=== PATIENT | male | born 1980 ===

== ENCOUNTER 2021-04-15 11:06 | Emergency (ER) | payer OTHER, SELFPAY ==
[2021-04-15 12:26] VITALS: BP 117/69; PULSE 80; RESP 18; TEMP 36.7; O2SAT 99; BMI 37.1
--- NOTE | 2021-04-15 13:47 | ED.SKABFB ---
HPI - Skin/Abscess/Foreign Bdy General Chief complaint: Skin/Abscess/Foreign Body Stated complaint: rash Time Seen by Provider: 04/15/21 13:36 Source: patient Mode of arrival: ambulatory Limitations: no limitations History of Present Illness HPI narrative: 41-year-old male with rash the right side his face started with an infection and then has accumulated he has been putting bacitracin and cortisone with worsening redness and itchiness. He denies fevers cough shortness of breath nausea vomiting or diarrhea. MD complaint: rash Related Data Previous Rx's Medication Instructions Recorded doxycycline hyclate 100 mg capsule 100 mg PO DAILY #7 cap 04/15/21 mupirocin 2 % topical ointment 1 appl TOPICAL TID #22 g 04/15/21 Allergies Allergy/AdvReac Type Severity Reaction Status Date / Time No Known Allergies Allergy Unverified 03/15/20 16:53 Review of Systems Review of Systems: Review of systems: General: Patient denies any fever chills recent illness or falls Musculoskeletal: Denies back pain or body aches or other injuries HEENT: denies headache, runny nose, ear pain Respiratory: denies shortness of breath, cough Cardiovascular: no chest pain or palpitations : denies dysuria, frequency Abdomen: no nausea vomiting denies abdominal pain Extremities: no swelling, no pain Skin: Well-demarcated rash to the right side of his face with pimples no diaphoresis Yes all other systems are reviewed and are negative PMFSH Past Medical History Medical History (Updated 04/15/21 @ 13:52 by Neville Carrasco DO) No known health problems Social History Social History Advance Directives: No Advance Directives Information Provided: No Physical Exam Vital Signs: Vital Signs: Last Vital Signs Temp 98.1 F 04/15/21 12:26 Pulse 80 04/15/21 12:26 Resp 18 04/15/21 12:26 BP 117/69 04/15/21 12:26 Pulse Ox 99 04/15/21 12:26 Body Mass Index 37.1 General: Well-appearing well-nourished in no signs of distress HEENT: Normocephalic atraumatic Neck: No signs of JVD, no masses no tenderness or lymphadenopathy Cardiovascular: Regular rate and rhythm Respiratory: Clear to auscultation bilaterally Abdomen: Soft nontender no masses rectal exam performed guiac negative chemistry quality control technician confirmed. Extremities: Normal pedal pulses no signs of edema Skin: Rash the right side his face with erysipelas verses a staph infection isolated just to the right side his face Dry warm no rashes Back: No tenderness full ROM MDM - Skin/Abscess/Foreign Bdy MDM Narrative Medical decision making narrative: Likely paraseptal versus staph infection all start the patient on doxycycline and reports and cream. Discharge Plan Discharge Clinical Impression: Erysipelas Patient Disposition: Home, Self-Care Instructions: MRSA (Methicillin-Resistant Staphylococcus Aureus) (ED), Cellulitis (ED) Additional Instructions: Please use the cream and antiobiotic. If you have any other concerns please return to the ED. Prescriptions: New doxycycline hyclate 100 mg capsule 100 mg PO DAILY Qty: 7 RF: 0 mupirocin 2 % ointment 1 appl topical TID Qty: 22 RF: 0
--- NOTE | 2021-04-15 14:01 | PC.NURSE ---
PT EVALUATED BY DR CUNNINGHAM UPON ARRIVAL TO ED RP ROOM PT AWAKE, ALERT AND ORIENTED X 3. SKIN WARM AND DRY. RESP UNLABORED. DENIES N/V. NO C/O PAIN. REPORTS RASH TO RIGHT SIDE OF FACE THAT IS VERY ITCHY. PLAN IS FOR ABX AND DC HOME. PT AWARE AND AGREEABLE TO PLAN
== END 2021-04-15 14:05 | disposition home or self-care (01) ==
PROVIDERS: Emergency Provider Student in an Organized Health Care Education/Training Program; PCP Family Medicine
DX: A46 Erysipelas (principal); R21 Rash and other nonspecific skin eruption; Z79.899 Other long term (current) drug therapy
CPT/HCPCS: 99282; 99283

== ENCOUNTER 2022-03-12 09:53 | Emergency (ER) | payer OTHER, SELFPAY | END 2022-03-12 11:39 | disposition left against medical advice (07) | PROVIDERS: Emergency Provider Emergency Medicine; PCP Family Medicine | DX: M54.50 Low back pain, unspecified (principal) ==

== ENCOUNTER 2023-02-09 11:43 | Outpatient (REF) | payer OTHER, SELFPAY ==
[2023-02-09 14:07] LABS: Alanine Aminotransferase 38 U/L (0-40); Albumin Level 4.3 g/dL (3.5-5.0); Alkaline Phosphatase 84 U/L (39-117); Anion Gap 11 (12-20); Aspartate Amino Transferase 28 U/L (5-37); Bilirubin Direct 0.1 mg/dL (0.0-0.5); Bilirubin Total 0.3 mg/dL (0.0-1.0); Blood Urea Nitrogen 12 mg/dL (9-16); Calcium 9.7 mg/dL (8.4-10.2); Carbon Dioxide 30 mmol/L (22-29); Chloride 107 mmol/L (96-108); Cholesterol 234 mg/dL; Estimated Glomerular Filt Rate > 60; Glucose Random 99 mg/dL (60-115); HDL Cholesterol 49 mg/dL; LDL Cholesterol Calculated 162 mg/dl; Sodium 144 mmol/L (135-145); Total Protein 7.6 g/dL (6.5-8.0); Triglycerides 119 mg/dL
[2023-02-10 02:47] LABS: Microalbum/Creatinine Ratio Ur 6.7 ug/mg cr
[2023-02-10 04:38] LABS: HIV AB/AG Nonreactive (Nonreactive); HIV Num 1 0.07 S/CO (0.00-0.99)
[2023-02-10 04:44] LABS: ~HepC Num1 0.11 S/CO (0.00-0.79); ~Hepatitis C Antibody Nonreactive (Nonreactive)
== END 2023-02-09 11:44 | disposition home or self-care (01) ==
LOC: HO.HHCL 11:43
PROVIDERS: Visit Provider Family Medicine
DX: Z11.4 Encounter for screening for human immunodeficiency virus [HIV] (principal); Z11.59 Encounter for screening for other viral diseases; E78.5 Hyperlipidemia, unspecified; E11.69 Type 2 diabetes mellitus with other specified complication
CPT/HCPCS: 36415; 80048; 80061; 80076; 82043; 86803; 87389

== ENCOUNTER 2023-03-23 12:50 | Outpatient (REF) | payer OTHER, SELFPAY ==
[2023-03-23 17:13] LABS: Microalbumin Urine < 5.0 mg/L
== END 2023-03-23 12:51 | disposition home or self-care (01) ==
LOC: HO.HHCL 12:50
PROVIDERS: Visit Provider Family Medicine
DX: E11.69 Type 2 diabetes mellitus with other specified complication (principal)
CPT/HCPCS: 82043; 82570

== ENCOUNTER 2024-03-21 12:12 | Outpatient (REF) | payer OTHER, SELFPAY ==
--- NOTE | ~2024-03-21 | XR_ITS ---
EXAMINATION: XR CERVICAL SPINE CLINICAL INFORMATION: Neck pain. Patient reports neck pain during wrestling. COMPARISON: None available. TECHNIQUE: 6 views of the cervical spine, inclusive of flexion and extension views, were obtained. FINDINGS: Question slight anterior listhesis of C3 on C4. Additionally there is suboptimal visualization of the C3-C4 facet joint on the lateral view and on the right anterior oblique view Additionally the cervicothoracic junction partially obscured by overlying tissues. The remaining vertebral bodies and disc spaces and facets are unremarkable. XR/XR cervical spine 4V IMPRESSION: Exam is partially limited as the cervicothoracic junction is partially obscured on the lateral projection. Additionally there appears to be subtle malalignment at the C3-C4 level is suboptimal visualization of the facet joints. Possibility of fracture in or subluxation at this level is a concern. Recommend follow-up examination with CT to better visualize this portion of the cervical spine as well as well as to fully evaluate the cervicothoracic junction This critical result was discussed with Dr Freeman at approximately 3:25 PM on March 21, 2024 and it was ascertained that the content and urgency of the report was understood at the time of direct communication. Electronically signed by: Rodney Sweet MD 03/21/2024 03:30 PM EDT
[2024-03-21 13:39] LABS: Hematocrit 49.3 % (42.0-52.0); Hemoglobin 15.6 g/dl (14.0-18.0); Mean Corpuscular HGB Conc 31.6 g/dl (31.0-36.0); Mean Corpuscular Volume 85.4 fL (80.0-98.0); Mean Platelet Volume 9.8 fL (9.4-12.4); Platelet Count 242 X10*3/uL (160-400); Red Blood Count 5.77 X10*6/uL (4.60-5.80); Red Cell Distribution Width 14.5 % (11.0-16.0)
[2024-03-21 14:17] LABS: Alanine Aminotransferase 27 U/L (0-40); Albumin Level 4.2 g/dL (3.5-5.0); Alkaline Phosphatase 82 U/L (39-117); Anion Gap 13 (12-20); Aspartate Amino Transferase 25 U/L (5-37); Bilirubin Direct < 0.2 mg/dL (0.0-0.5); Bilirubin Total 0.2 mg/dL (0.0-1.0); Blood Urea Nitrogen 12 mg/dL (9-16); Calcium 9.2 mg/dL (8.4-10.2); Carbon Dioxide 27 mmol/L (22-29); Chloride 108 mmol/L (96-108); Cholesterol 170 mg/dL (<200); Estimated Glomerular Filt Rate > 60; Glucose Random 102 mg/dL (60-115); HDL Cholesterol 41 mg/dL (>40); LDL Cholesterol Calculated 115 mg/dL (<100); Potassium 4.2 mmol/L (3.3-5.1); Sodium 144 mmol/L (135-145); Total Protein 7.2 g/dL (6.5-8.0); Triglycerides 71 mg/dL (<150)
[2024-03-21 14:22] LABS: Creatinine Urine 91.85 mg/dL; Microalbum/Creatinine Ratio Ur 6.5 ug/mg cr (<30)
[2024-03-22 08:26] LABS: HIV AB/AG Nonreactive (Nonreactive); HIV Num 1 0.05 S/CO (0.00-0.99); ~HepC Num1 0.12 S/CO (0.00-0.79); ~Hepatitis C Antibody Nonreactive (Nonreactive)
[2024-03-22 08:33] LABS: Syphilis Screen Nonreactive (Nonreactive)
[2024-03-25 16:38] LABS: Testosterone, Total 511 ng/dL (250-1100)
== END 2024-03-21 12:13 | disposition home or self-care (01) ==
LOC: HO.HHCL 12:12
PROVIDERS: Visit Provider Family Medicine
DX: E11.69 Type 2 diabetes mellitus with other specified complication (principal); E78.5 Hyperlipidemia, unspecified; Z11.3 Encounter for screening for infections with a predominantly sexual mode of transmission; M54.2 Cervicalgia
CPT/HCPCS: 36415; 72050; 80048; 80061; 80076; 82043; 82570; 84403; 85027; 86780; 86803; 87389

== ENCOUNTER 2024-03-22 10:17 | Emergency (ER) | payer OTHER, SELFPAY ==
--- NOTE | ~2024-03-22 | CT_ITS ---
EXAMINATION: CT CERVICAL SPINE WITHOUT CONTRAST CLINICAL INFORMATION: Neck pain COMPARISON: Plain radiograph 03/21/2024 TECHNIQUE: Thin section axial imaging with sagittal and coronal reformats. This CT examination was performed using dose optimization techniques as appropriate, variously including the following: *Automated exposure control *Adjustment of mA and/or kV according to patient size (this includes techniques or standardized protocols for targeted exams where dose is matched to indication/reason for exam; i.e. extremities or head) *Use of iterative reconstruction technique DLP: 592 mGy-cm FINDINGS: No fracture or destructive process or alignment abnormality. No encroachment on the spinal canal. Prevertebral soft tissues are normal. CT/CT cervical spine wo IV con IMPRESSION: Unremarkable examination. Fleischner guidelines were followed. Electronically signed by: Kali Kennedy MD 03/22/2024 01:31 PM EDT
--- NOTE | 2024-03-22 11:11 | ED_ITS ---
HPI - Neck Pain/Injury General Chief Complaint: Back Pain/Injury Stated Complaint: Neck pain R side Time Seen by Provider: 03/22/24 13:13 Source: patient, RN notes reviewed and old records reviewed Mode of arrival: ambulatory History of Present Illness ED Provider: Gloria Lovell PA-C HPI Narrative: 44-year-old male with no significant past medical history presenting to the ED complaining of right-sided neck pain x3 weeks s/p friend pushing head under water in pool. denies head hitting pool bottom. Admits had x-ray done yesterday through PCP and sent to ED for CT scan. Reports pain worse with movement and palpation, improved after massage. Denies taking medication at. Denies headache, vision change/loss at present, nausea/vomiting, numbness/tingling, weakness. Denies chiropractor/MVA or trauma MD complaint: neck pain Related Data Previous Rx's ?Medication ?Instructions ?Recorded doxycycline hyclate 100 mg capsule 100 mg PO DAILY cellulitis #7 caps 04/15/21 mupirocin 2 % topical ointment 1 appl topical TID cellulitis of 04/15/21 face #22 grams acetaminophen 500 mg tablet 500 mg PO Q6H PRN fever or pain 03/22/24 (Tylenol Extra Strength) #14 tabs cyclobenzaprine 10 mg tablet 10 mg PO TID PRN muscle spasm #14 03/22/24 tabs lidocaine 5 % topical patch 1 patch topical DAILY PRN pain #30 03/22/24 (Lidoderm) ea naproxen 500 mg tablet 500 mg PO BID PRN pain 10 days #20 03/22/24 tabs Allergies Allergy/AdvReac Type Severity Reaction Status Date / Time No Known Allergies Allergy Verified 03/22/24 11:14 Review of Systems Review of Systems: Yes all other systems are reviewed and are negative Constitutional: Constitutional: Reports as per [facility] Past Medical History Attestation statement: The following information was validated with the patient. Source: old records reviewed Medical History No known health problems Social History Social History Advance Directives: No Advance Directives Information Provided: Yes Do you have a plan to hurt others: No Plan Physical Exam Vital Signs: Vital Signs: Last Vital Signs Temp 98.3 F 03/22/24 11:13 Pulse 89 03/22/24 11:13 Resp 18 03/22/24 11:13 BP 116/58 L 03/22/24 11:13 Pulse Ox 94 03/22/24 11:13 O2 Del Method Room Air 03/22/24 11:13 BMI result Body Mass Index 36.0 Const: General: cooperative, healthy appearing and no acute distress Orientation/consciousness: patient oriented x3 Limitations: no limitations HEENT: Head: Yes normal to inspection and Yes atraumatic Ears: hearing ronda sly normal bilaterally General nose exam: Normal external nose present Face and sinus: Yes normal facial exam Throat: Yes posterior oropharynx normal and Yes uvula midline Eyes: General: appearance normal, both eyes and all related structures Pupils: Equal, round and reactive pupils present EOM: EOMs intact bilaterally Neck: Other: no midline cervical spinous tenderness. + right-sided paraspinal reproducible tenderness and right-sided trapezius muscle tenderness to palpation. Neck ROM intact, pain with rightward motion Neck: Yes normal visual inspection and Yes no meningeal signs Resp: Effort & Inspection: normal respiratory effort and no respiratory distress Cardio: Rate: regular rate Peripheral pulses: Peripheral pulses 2+ throughout Skin: Rashes: no rashes Wounds: no wounds Neuro: General: patient oriented x3, gait normal, tone normal, moves all extremities, no meningeal signs, no focal motor deficits and CN's II-XI intact bilaterally Cranial nerves: Yes CN's II-XII intact bilaterally and Yes Equal, round and reactive pupils present Gait exam (Neuro): Normal gait present Motor exam (neuro): 5/5 motor strength present throughout Extrem: General: Yes normal to inspection Course Course Course Narrative: This is a rapid medical exam performed by Joyce Alicea PA-C. The patient comes in with right-sided neck pain x3 weeks. He has been seen by his primary care provider, an x-ray was obtained. He states he was told to come to the ED for a CT scan. Denies paresthesias, or weakness of upper extremities. There was no preceding trauma. I have ordered a CT scan of the cervical spine. The patient is being placed back in the waiting room pending results. 1341--CT cervical spine wo IV con IMPRESSION: Unremarkable examination. Fleischner guidelines were followed. Results discussed with patient including worrisome signs and symptoms and strict return precautions, and when to return to the emergency department. They verbalized understanding and feel safe for discharge at this time. Medical Decision Making Medical Decision Making MDM Narrative: 44-year-old male with no significant past medical history presenting to the ED complaining of right-sided neck pain x3 weeks s/p friend pushing under water in pool. Cervical x-ray from yesterday concern for possible fracture or subluxation at C3/C4. On exam vital signs stable, NAD, nontoxic appearing, physical exam as noted above. No midline spinous tenderness throughout. Reproducible MSK/paraspinal tenderness. No focal neuro deficits. Concern for MSK pain/strain vs fracture. Low suspicion for cervical dissection, CVT. Plan: Pain control, cervical CT Please refer to course for remaining clinical decision making, interpretation of labs/imaging results, and discussions with consultants and/or family members. Differential Diagnosis Differential Diagnoses: The differential diagnosis associated with the presentation includes As above Admission/Observation Consideration of admission/observation: Escalation of care including admission/observation considered Radiology Impression Discussion of test interpretation with radiology: I have reviewed the radiologist's reading. External Record Review External record reviewed: Inpatient record, Office record, Outpatient record, Prior outpatient labs, Prior outpatient radiology, Primary care record and Outside ED record Tests considered The following testing was considered but not selected: As above Prescription Management I considered prescription management with: Pain Medication Discharge Plan Discharge Clinical Impression: Acute strain of neck muscle Patient Disposition: Home, Self-Care Instructions: Cervical Strain (DC) Additional Instructions: Your CT scan is unremarkable. Please have close follow-up with her doctor Your pain is likely musculoskeletal Flexeril is a muscle relaxer, take at night as it makes you drowsy, do not drive, drink alcohol, or operate machinery while taking it Naproxen as an anti-inflammatory / pain medication, take with food Lidoderm patches are numbing patches, apply to painful area In addition take Tylenol at home If symptoms persist or worsen, pain becomes unbearable, you developed urinary retention or incontinence, or weakness return to the ED Prescriptions: New cyclobenzaprine 10 mg tablet 10 mg PO TID PRN (Reason: muscle spasm) Qty: 14 0RF acetaminophen [Tylenol Extra Strength] 500 mg tablet 500 mg PO Q6H PRN (Reason: fever or pain) Qty: 14 0RF lidocaine [Lidoderm] 5 % adhesive patch,medicated 1 patch topical DAILY MDD remove after 12 hours PRN (Reason: pain) Qty: 30 0RF Rx Instructions: leave on most painful area for up to 12 hrs naproxen 500 mg tablet 500 mg PO BID PRN (Reason: pain) 10 Days Qty: 20 0RF No Action doxycycline hyclate 100 mg capsule 100 mg PO DAILY Qty: 7 0RF mupirocin 2 % ointment 1 appl topical TID Qty: 22 0RF Referrals: Maryanne Freeman MD [Primary Care Provider] - Print Language: Vincentian
[2024-03-22 11:13] VITALS: BP 116/58; PULSE 89; RESP 18; TEMP 36.8; O2SAT 94; BMI 36.0
[2024-03-22] MEDS: Ketorolac Tromethamine 30 MG/ML VIAL IM (14:07)
[2024-03-22] MEDS: Acetaminophen 325 MG TABLET 975 MG PO (14:08)
[2024-03-22 14:12] VITALS: BP 118/74; PULSE 75; RESP 16; TEMP 36.6; O2SAT 94
== END 2024-03-22 14:15 | disposition home or self-care (01) ==
PROVIDERS: Emergency Provider Emergency Medicine; PCP Family Medicine
DX: S16.1XXA Strain of muscle, fascia and tendon at neck level, initial encounter (principal); M54.2 Cervicalgia; X58.XXXA Exposure to other specified factors, initial encounter; Y93.89 Activity, other specified; Y92.89 Other specified places as the place of occurrence of the external cause; Y99.8 Other external cause status; Y93.11 Activity, swimming
CPT/HCPCS: 72125; 96372; 99283; 99284; J1885

== ENCOUNTER 2024-05-16 13:43 | Outpatient (AMB) | payer OTHER, SELFPAY ==
--- NOTE | 2024-05-16 14:01 | MHC.OFFVIS ---
Intake Visit Reasons: ED Intake Note: New Patient presents for initial visit for erectile dysfunction Urology Medications: none Blood Thinner: none Remote Sensing Specialist Required: Yes Remote Sensing Specialist Services: Remote Sensing Specialist Present Remote Sensing Specialist Name: [id number] Accompanied by: Self / Same As Patient Allergies No Known Allergies Allergy (Verified 05/16/24 14:43) Medication List - Last Reconciled 05/16/24 by Isaura Enriquez, INCLUSION MANAGER-BC acetaminophen (Tylenol Extra Strength) 500 mg PO Q6H PRN cyclobenzaprine 10 mg PO TID PRN lidocaine 5% (Lidoderm) 1 patch topical DAILY PRN MDD remove after 12 hours mupirocin 2% 1 appl topical TID naproxen 500 mg PO BID PRN 10 days HPI Comments Details: Salty is a very pleasant 44-year-old Nigerian-speaking male patient of Dr. Freeman. Has a past medical history of obesity, type 2 diabetes, sleep apnea, nicotine dependence, recreational marijuana use, hypertension, hyperlipidemia, depression, atrial fibrillation resolved with treatment of FLAKITO, and erectile dysfunction. He presents to the office today as a new patient for erectile dysfunction. In discussion with the patient today he notes over the last few months to be having issues obtaining and maintaining his erections. When asked he does report having lost over 100 lb in the last 1-2 years. He does report a longstanding history of nicotine dependence and recreational marijuana use. We discussed at length potential causes of erectile dysfunction as well as further treatment options and risks and benefits of these treatment options. He otherwise denies any bothersome urinary issues. In office urinalysis results reviewed with the patient today. He denies urinary urgency, urinary frequency, incontinence, nocturia, hematuria, dysuria, foul smelling urine, changes to urinary stream, flank pain, fever, and or chills. He is happy with his current voiding parameters. He discusses history of weight loss as he was potentially going to be trached due to increased weight and trouble breathing. He reports since weight loss journey he has significantly improved his diabetes as well as his sleep apnea. In review of patient's chart it appears testosterone was ordered and performed. These results were reviewed with the patient today as well as recent A1c. Testosterone: 03/22 511 A1c: 06/17 5.6, 02/18 5.9, 03/22 6.0 [facility] Medical History No known health problems Review of Systems Const All systems reviewed & are unremarkable except as noted in HPI and below Physical Exam Const General: cooperative, healthy appearing, comfortable, no acute distress, well developed, alert and awake Nutritional Appearance: obese Orientation/consciousness: patient oriented x3 Limitations: no limitations HEENT Head: Yes normal to inspection, Yes normocephalic and Yes atraumatic Ears: hearing grossly normal bilaterally Eyes General: appearance normal, both eyes and all related structures Neck Neck: Yes normal visual inspection and Yes trachea midline Chest Chest palpation & inspection: normal inspection of the chest Resp Effort & Inspection: normal respiratory effort and able to speak in complete sentences Cardio Rate: regular rate GI Inspection: Yes normal to inspection General: Yes no CVA tenderness Back/Spine/Pelvis Back: no CVA tenderness Skin General skin exam: no rashes or lesions noted Neuro General: patient oriented x3 Extrem General: Yes normal to inspection Psych Appearance: grossly normal and well kempt Mental Status: mental status grossly normal Speech and movement: Normal speech and movement present and Clear speech present Affect: normal affect Attitude: cooperative Thought process: Normal thought process present Thought content: Normal thought content present Insight: Fair insight present (Psych) Judgement: Fair judgement present (Psych) Results AMB Urinalysis, Automated UA Leukoctes 0 Ema/uL Last Edit by [employer] Kurt on 05/16/24 14:12 UA Nitrite Last Edit by [employer] Kurt on 05/16/24 14:12 UA Urobilinogen 0.2 mg/dL Last Edit by [employer] Hicks on 05/16/24 14:12 UA Protein 0 mg/dL Last Edit by Nadine Hicks on 05/16/24 14:12 UA pH 6.0 Last Edit by [employer] Hicks on 05/16/24 14:12 UA Blood 0 Andres/uL Last Edit by [employer] OpalFishidy on 05/16/24 14:12 UA Specific [place] 1.020 Last Edit by [employer] Hicks on 05/16/24 14:12 UA Ketone Last Edit by [employer] Hicks on 05/16/24 14:12 UA Bilirubin 0 mg/dL Last Edit by [employer] Hicks on 05/16/24 14:12 UA Glucose 0 mg/dL Last Edit by Nadine Hicks on 05/16/24 14:12 Results Reviewed Results Reviewed: Laboratory Last Values Urine pH (Auto) 6.0 05/16/24 14:07 Specific [place] (Auto) 1.020 05/16/24 14:07 Urine Protein (Auto) 0 mg/dL 05/16/24 14:07 Glucose (UA)(Auto) 0 mg/dL 05/16/24 14:07 Urine Blood (Auto) 0 Andres/uL 05/16/24 14:07 Urine Bilirubin (Auto) 0 mg/dL 05/16/24 14:07 Urine Urobilinogen (Auto) 0.2 mg/dL 05/16/24 14:07 Leukocyte Esterase (Auto) 0 Ema/uL 05/16/24 14:07 Assessment & Plan Assessment & Plan (1) Erectile dysfunction associated with type 2 diabetes mellitus: Code(s): E11.69 - Type 2 diabetes mellitus with other specified complication; N52.1 - Erectile dysfunction due to diseases classified elsewhere Category: Medical (2) Nicotine dependence: Code(s): F17.200 - Nicotine dependence, unspecified, uncomplicated Category: Medical (3) Marijuana smoker: Code(s): F12.90 - Cannabis use, unspecified, uncomplicated Category: Medical Plan In office urinalysis results reviewed with the patient today; as noted above. Recent A1c and testosterone results reviewed with the patient today; as noted above. We discussed at length importance of limiting/quitting marijuana use as well as nicotine dependence for overall health and well-being as well as erectile dysfunction. We discussed lifestyle modifications to assist with erectile dysfunction as well as further treatment options and risks and benefits of these treatment options. He otherwise denies any bothersome urinary issues. He reports be happy with current voiding parameters. Will obtain A1c in 3 months. Start Cialis; prescription provided. Prescription provided for p.r.n. dosing. Follow-up in 3 months; or sooner with any issues, concerns, and or questions. Orders: Orders AMB Urinalysis Automated Today Z13.9 - Encounter for screening, unspecified Hemoglobin A1c Today E11.9 - Type 2 diabetes mellitus without complications Medications: New tadalafil (Cialis) Take 1-2 tablets 1 hour prior to sexual activity; not to exceed more than 2-3 times per week [employer] [facility] STARR [id number] 10 mg PO .PRN 30 days PRN 20 tabs 3RF sexual activity tadalafil (Cialis) [employer] [facility] DR33 [id number] 5 mg PO DAILY 90 days 90 tabs 0RF Patient Instructions: The patient had an opportunity to ask questions regarding the treatment plan. All questions were answered. Physical exam, labs, and imaging were discussed and reviewed in detail. As well as risks, benefits, and discussion of treatment choices. No major barriers to understanding were identified. The patient expressed understanding and agreement with the above treatment plan. The patient was made aware they should contact our office by phone for worsening of their current condition, the appearance of new symptoms, or with any questions or concerns. Compliance is encouraged with any medications and follow up testing that is ordered. It is a privilege to be allowed the opportunity to participate in? your urological care.? Again, if you have any questions or concerns If you have any questions or concerns please do not hesitate to contact me. The office is [phone]. This note is constructed using voice recognition software. While every effort has been made to ensure accuracy managing consultant clinical professor errors may have been included. Yours sincerely, JEFF Alcaraz Coding Level of Care Code New Pt Level 4 (46082) Diagnoses Erectile dysfunction associated with type 2 diabetes mellitus E11.69; N52.1 Nicotine dependence F17.200 Marijuana smoker F12.90
== END 2024-05-16 14:45 | disposition home or self-care (01) ==
PROVIDERS: PCP Family Medicine; Visit Provider Nurse Practitioner Family
DX: E11.69 Type 2 diabetes mellitus with other specified complication (principal); N52.1 Erectile dysfunction due to diseases classified elsewhere; F17.200 Nicotine dependence, unspecified, uncomplicated; F12.90 Cannabis use, unspecified, uncomplicated; Z13.9 Encounter for screening, unspecified
CPT/HCPCS: 99204

== ENCOUNTER → 2024-05-16 13:43 | Outpatient (BNVA) | payer OTHER, SELFPAY | PROVIDERS: PCP Family Medicine; Visit Provider Nurse Practitioner Family | DX: E11.69 Type 2 diabetes mellitus with other specified complication (principal); N52.1 Erectile dysfunction due to diseases classified elsewhere; F12.90 Cannabis use, unspecified, uncomplicated; F17.200 Nicotine dependence, unspecified, uncomplicated | CPT/HCPCS: 81003; 99202 ==

== ENCOUNTER 2024-08-08 10:07 | Outpatient (REF) | payer OTHER, SELFPAY ==
[2024-08-08 10:51] LABS: Estimated Average Glucose 108 mg/dL; Hemoglobin A1C 137.0439 umol/L; Hemoglobin A1c % 5.4 % (<6.0); Total Hemoglobin (HGBA1C) 3818.2476 umol/L
--- OUTSIDE RECORDS SUMMARY | 2024-08-08 11:03 | XMS_ITS | Clinical Summary ---
Author Organization [facility] Address [address] [place] [address] Care Team Providers Care Vice President Marketing & Development Name Role Phone Pete, Maryanne SONI Primary Care Provider [phone] Isaura Enriquez NP Unavailable Allergies No known active allergies Medications PARoxetine (Paxil) 10 MG tablet 08/11/2022 Active traZODone (Desyrel) 50 MG tablet 08/11/2022 Active semaglutide (Ozempic) 2 MG/1.5ML solution pen-injectorIndi cations:Type 2 diabetes mellitus with other specified complication, unspecified whether prison insulin use ([facility]),Obstru ctive sleep apnea syndrome Inject 1 mg under the skin 1 (one) time per week. 2 each 12 03/21/2024 Active fish oil (Millinocket-3) 500 MG capsuleIndicatio ns:Dyslipidemia Take 1 capsule (500 mg) by mouth Once per day. 60 capsule 11 03/21/2024 Active Active Problems Problem Noted Date Diagnosed Date Acute strain of neck muscle 03/28/2024 Erysipelas 03/28/2024 Pain 03/28/2024 Erectile dysfunction 03/21/2024 Overview (05/17/2024): Isolated episode of erectile dysfunction. Seen by urology 05/17/24. Trial of Cialis initiated. Assessment & Plan (03/21/2024 11:16 AM EDT): Isolated episode of erectile dysfunction. -referred to Urology per pt request 03/21/24 Encounter for screening for malignant neoplasm o f colon 03/21/2024 Overview (03/21/2024): -referred to GI for screening 03/21/24 Assessment & Plan (03/21/2024 11:22 AM EDT): -referred to GI for screening 03/21/24 Neck pain 03/21/2024 Overview (03/21/2024): -ordered C-spine x-ray 03/21/24, -Additionally there appears to be subtle malalignment at the C3-C4 level is suboptimal visualization of the facet joints. Possibility of fracture in or subluxation at this level is a concern. Recommend follow-up examination with CT to better visualize this portion of the cervical spine as well as well as to fully evaluate the cervicothoracic junction -call received from radiology that can not rule out mal alignment of C3-C4, recommends order CT of the c spine to r/o trauma, fracture or subluxation, CT stat ordered 03/21/24 however pts insurance is not likely to approve this in a timely manner, given the serious nature of the possible neck fracture, pt advised to go to ER. Will continue to call until he is reached. -STAT order for c-spine CT placed 03/21/24 3:56 PM , will cancel if he can be reached to get to ER Assessment & Plan (03/21/2024 4:11 PM EDT): -ordered C-spine x-ray 03/21/24, -Additionally there appears to be subtle malalignment at the C3-C4 level is suboptimal visualization of the facet joints. Possibility of fracture in or subluxation at this level is a concern. Recommend follow-up examination with CT to better visualize this portion of the cervical spine as well as well as to fully evaluate the cervicothoracic junction -call received from radiology that can not rule out mal alignment of C3-C4, recommends order CT of the c spine to r/o trauma, fracture or subluxation, CT stat ordered 03/21/24 however pts insurance is not likely to approve this in a timely manner, given the serious nature of the possible neck fracture, pt advised to go to ER. Will continue to call until he is reached. -STAT order for c-spine CT placed 03/21/24 3:56 PM , will cancel if he can be reached to get to ER Other specified health status 02/09/2023 Overview (03/21/2024): -next comprehensive annual evaluation due after 03/12/2023. -referred to [facility] -dental home is [facility] -[place] care proxy given and filed 03/21/24 Assessment & Plan (03/21/2024 11:09 AM EDT): -next comprehensive annual evaluation due after 03/12/2023. -referred to [facility] -dental home is [facility] -[place] care proxy given and filed 03/21/24 Assessment & Plan (02/09/2023 10:44 AM EDT): -next physical exam due after 03/12/2023. -eye care facilitated by -dental home is [facility] History of atrial fibrillation 02/09/2023 Overview (02/09/2023): Distant Hx of atrial fibrillation right core pulmonale, resolved with treatment of FLAKITO. Assessment & Plan (02/09/2023 10:47 AM EDT): Distant Hx of atrial fibrillation right core pulmonale, resolved with treatment of FLAKITO. Class 3 obesity 02/09/2023 Overview (03/23/2023): -Weight 239 02/09/2023 -Ozempic started 02/09/2023. -Weight 231 03/03/2023 ozempic increased. -Continue lifestyle modifications. Assessment & Plan (03/23/2023 11:05 AM EDT): -Weight 239 02/09/2023 -Ozempic started 02/09/2023. -Weight 231 03/03/2023 ozempic increased. -Continue lifestyle modifications. Assessment & Plan (02/09/2023 10:48 AM EDT): Pt lost significant amount of weight. Weight in 2012 was 212lbs. Numbness in both hands 02/09/2023 Overview (02/09/2023): Nerve conduction study ordered 02/09/2023. Assessment & Plan (02/09/2023 10:51 AM EDT): Nerve conduction study ordered 02/09/2023. Essential hypertension 08/29/2022 Overview (02/09/2023): -Blood pressure is at goal -Continue lifestyle modifications -Continue current medications Assessment & Plan (03/21/2024 11:11 AM EDT): -Blood pressure is at goal -Continue lifestyle modifications -Continue current medications Assessment & Plan (02/09/2023 9:56 AM EDT): -Blood pressure is at goal -Continue lifestyle modifications -Continue current medications Recurrent major depressive episodes, mild 2018 Overview (03/21/2024): Followed by therapy. Doing well. No BALJIT. -Taking Trazodone and Paxil Assessment & Plan (03/21/2024 11:18 AM EDT): Followed by therapy. Doing well. No BALJIT. -Taking Trazodone and Paxil Tobacco dependence syndrome 11/03/2018 Overview (03/21/2024): -Cigg/day: approx. 10/day -Age started: 13 years old -Total years smokin years -Pack year history: 13 Encouraged smoking cessation resources such as pharmacomtherapy, [facility] smoking cessation group, and [facility] pharmacy smoking cessation clinic Discussed USPSTF recommends annual lung cancer screening with low dose CT in people who meet the following criteria: -ages 50 to 80 years. -have a 20 pack-year smoking history. -currently smoke cigarettes or quit within the past 15 years. -LDCT: Assessment & Plan (03/21/2024 11:21 AM EDT): -Cigg/day: approx. 10/day -Age started: 13 years old -Total years smokin years -Pack year history: 13 Encouraged smoking cessation resources such as pharmacomtherapy, [facility] smoking cessation group, and [facility] pharmacy smoking cessation clinic Discussed USPSTF recommends annual lung cancer screening with low dose CT in people who meet the following criteria: -ages 50 to 80 years. -have a 20 pack-year smoking history. -currently smoke cigarettes or quit within the past 15 years. -LDCT: Dyslipidemia 11/17/2012 Overview (03/21/2024): Lab Results Component Value Date TRIG 119 02/09/2023 -continue lifestyle modifications Assessment & Plan (02/09/2023 9:56 AM EDT): No results found for: CHOLESTEROL, LDLCHOL, TRIG, HDLCHOL, CHOLHDLRAT -continue lifestyle modifications Erythrocytosis 01/06/2012 Morbid obesity 01/06/2012 Overview (03/21/2024): -Weight 239 02/09/2023 -Ozempic started 02/09/2023. -Weight 231 03/03/2023 ozempic increased. -Continue Ozempic. -Continue lifestyle modifications. Assessment & Plan (03/21/2024 11:18 AM EDT): -Weight 239 02/09/2023 -Ozempic started 02/09/2023. -Weight 231 03/03/2023 ozempic increased. -Continue Ozempic. -Continue lifestyle modifications. Assessment & Plan (03/23/2023 11:05 AM EDT): -Weight 239 02/09/2023 -Ozempic started 02/09/2023. -Weight 231 03/03/2023 ozempic increased. -Continue lifestyle modifications. Assessment & Plan (02/09/2023 11:04 AM EDT): Start ozempic 0.25 weekly and increase to 0.5 weekly 02/09/2023. Obstructive sleep apnea syndrome 01/06/2012 Overview (03/18/2023): Self d/c CPAP after significant weight loss. Assessment & Plan (03/23/2023 10:50 AM EDT): Self d/c CPAP after significant weight loss. Type 2 diabetes mellitus wit h other specified complication, unspecified whether medical terminologist insulin use 01/06/2012 Overview (03/21/2024): Diabetes is controlled. - Lab Results Component Value Date HGBA1C 6.0 03/21/2024 HGBA1C 5.9 02/09/2023 HGBA1C 5.6 06/25/2020 -No results found for: POCA1C - Lab Results Component Value Date MICROALBUR <5.0 03/23/2023 CREATININE 0.81 02/09/2023 -Ozempic started 02/09/2023. Increased to 1mg weekly 03/23/2023. -Continue Ozempic 1mg once a week. -Alexander/Arb: none -Statin therapy: none -Diabetic eye exam: referred to [facility] 03/21/24 -Diabetic foot exam: done 03/21/24 -Continue lifestyle modifications Assessment & Plan (03/21/2024 11:17 AM EDT): Diabetes is controlled. - Lab Results Component Value Date HGBA1C 6.0 03/21/2024 HGBA1C 5.9 02/09/2023 HGBA1C 5.6 06/25/2020 -No results found for: POCA1C - Lab Results Component Value Date MICROALBUR <5.0 03/23/2023 CREATININE 0.81 02/09/2023 -Ozempic started 02/09/2023. Increased to 1mg weekly 03/23/2023. -Continue Ozempic 1mg once a week. -Alexander/Arb: none -Statin therapy: none -Diabetic eye exam: referred to [facility] 03/21/24 -Diabetic foot exam: done 03/21/24 -Continue lifestyle modifications Assessment & Plan (03/23/2023 12:49 PM EDT): Diabetes is controlled. - Lab Results Component Value Date HGBA1C 5.9 02/09/2023 HGBA1C 5.6 06/25/2020 -No results found for: POCA1C - Lab Results Component Value Date MICROALBUR 6.0 02/09/2023 CREATININE 0.81 02/09/2023 -Ozempic started 02/09/2023. Increased to 1mg weekly 03/23/2023. -Alexander/Arb: none -Statin therapy: none -Diabetic eye exam: [facility] 01/2023 -Diabetic foot exam: done 03/23/2023 -Continue lifestyle modifications Assessment & Plan (02/09/2023 11:18 AM EDT): Diabetes is controlled. - Lab Results Component Value Date HGBA1C 5.6 06/25/2020 -No results found for: POCA1C -No results found for: GLUF, MICROALBUR, LDLCALC, CREATININE -Start ozempic 0.25 weekly and increase to 0.5 weekly 02/09/2023. -Alexander/Arb: none -Statin therapy: none -Diabetic eye exam: [facility] 01/2023 -Diabetic foot exam: due -Continue lifestyle modifications Encounters Date Type Department Care Team Description 07/05/2024 Telephone [facility] OPTOMETRY [address], [place] [phone] Loretta Ramon, GURWINDER 05/09/2024 Orders Only [facility] MEDICINE [address] [place] [address] Maryanne Freeman MD Tobacco dependence syndrome (Primary Dx) from Last 3 Months Immunizations Name Administration Dates Next Due Hep A, Adult 02/09/2023,11/03/2018 Hep B, adult 03/12/2022,03/24/2019,11/03/2018 Influenza injectable quadriv alent IIV4 with preservative 03/19/2017 Influenza injectable quadriv alent preservative free 03/23/2023,03/12/2022,03/24/2019,06/21 Influenza, IIV3, injectable 03/09/2014, 2 Influenza, Split (incl. florian fied surface antigen) 05/05/2013,03/22/2012 Influenza, seasonal, injecta ble, preservative free 03/21/2024 Pfizer Covid-19 Vaccine 12+ 03/21/2024 Pfizer Covid-19 Vaccine 12+ Bivalent 07/08/2022 Pneumococcal Conjugate PCV 20 02/09/2023 Pneumococcal Polysaccharide PPSV23 03/22/2012 TD (adult), 2 Lf tetanus tox oid, preservative free, adsorbed 03/12/2022 Tdap 03/22/2012 Social History Tobacco Use Types Packs/Day Years Used Date Smoking Tobacco: Every Day Cigarettes Passive Smoke Exposure: Current Smokeless Tobacco: Never Tobacco Cessation:Ready to Q uit: Not Asked; Counseling Given: Not Answered Alcohol Use Standard Drinks/Week Comments Not Currently 0 (1 standard drink = 0.6 oz pur e alcohol) Alcohol Answer Date Recorded Frequency of Alcohol Consumption Not on file 03/21/2024 Average Number of Drinks Not on file 024 Frequency of Binge Drinking Not on file 02/28 Score 0 03/21/2024 Depression Answer Date Recorded Patient Health Questionnaire-9 Score 5 03/21/2024 Patient Health Questionnaire-9 Score 5 03/21/2024 Last PHQ-9: Questionnaire Data Not on file 0 03/21/2024 Housing Stability Answer Date Recorded What is your housing situation today? I have suzi ritu 03/21/[address] you li ve. Do you have problems with any of the following? None of the above 03/21/2024 Food Insecurity Answer Date Recorded Within the past 12 months, y ou worried that your food would run out before you got money to buy more: Never True 03/21/2024 Within the past 12 months,th e food you bought just didn't last and you didn't have enough money to get more: Never True Transportation Answer Date Recorded In the past 12 months, has l ack of transportation kept you from medical appts, meetings, work or from getting things needed for daily living? No 03/21/2024 Utilities Answer Date Recorded In the past 12 months, has t he electric, gas, oil or water company threatened to shut off services in your home? No 03/21/2024 Depression Answer Date Recorded Patient Health Questionnaire-2 Score 1 03/21/2024 Internet Access Answer Date Recorded Internet Access Q1 Yes 03/21/2024 Internet Access Q2 Not on file 03/21/2024 Sex and Gender Information Value Date Recorded Sex Assigned at Male 04/28/2022 10:16 AM EDT Legal Sex Male 10:16 AM EDT Gender Identity Male 04/28/2022 10:16 AM EDT Sexual Orientation Choose not to disclose 2021 10:16 AM EDT Last Filed Vital Signs Vital Sign Reading Time Taken Comments Blood Pressure 128/77 03/21/2024 11:00 AM EDT Pulse 80 03/21/2024 11:00 AM EDT Temperature 36.2 ??C (97.1 ??F) 03/21/2024 11:00 AM E DT Respiratory Rate 20 03/21/2024 11:00 AM EDT Oxygen Saturation 98% 03/21/2024 11:00 AM EDT Inhaled Oxygen Concentration - - Weight 105 kg (232 lb) 03/21/2024 11:00 AM EDT Height 167.6 cm (5' 6 ) 03/21/2024 11:00 AM EDT Body Mass Index 37.45 03/21/2024 11:00 AM EDT Plan of Treatment Upcoming Encounters Date Type Department Care Team (Late st Contact Info) Description 09/19/2024 11:00 AM EDT Office Visit [facility] MEDICINE [address] [place] [address] Maryanne Freeman MD [address] [place] [address] Health Maintenance Due Date Last Done Comments CT Colonography 1979 Colonoscopy 1979 Colorectal Cancer Screening 1979 FIT DNA/Cologuard 1979 FIT 1979 FOBT 1979 Sigmoidoscopy 1979 Eye Exam 1989 Family Planning (PISQ) 1994 Dental Oral Exam 06/18/2023 12/16/2022 Dental Prophylaxis 06/25/2023 12/23/2022 Dental X-Ray: Bitewings 12/18/2023 12/16/2022 Diabetes: Hemoglobin A1C 06/20/2024 025, 03/21/2024, 02/09/2023, Additional history exists Alcohol/Substance Use Screening 03/21/2025 03/21/2024 Depression Screening 03/21/2025 03/21/2024, 03/21/20 24 Diabetes: Foot Exam 03/21/2025 03/21/2024, 03/21/2024, 03/21/2024, Additional history exists Diabetes: Urine Protein Screening 03/21/2025 03/21/2024, 03/23/2023, 02/09/2023 Lipid Panel 03/21/2025 03/21/2024, 02/09/2023 SDOH Screening 03/21/2025 03/21/2024 Tobacco Screening 03/21/2025 03/21/2024 Dental X-Ray: Full Mouth 12/17/2025 12/16/2022, 11/27 Zoster Vaccines (1 of 2) 2029 DTaP/Tdap/Td Vaccines (3 - Td or Tdap) 03/12/2032 03/12/2022, 03/22/2012 RSV Patients and Patients Aged 60 years or older (1 - 1-dose 75+ series) 2054 Hepatitis B Vaccines Completed 03/12/2022, 03/24/2019, 11/03/2018 Hepatitis A Vaccines Completed 02/09/2023, 11/04/19 19 Pneumococcal Vaccine: Pediatrics (0 to 5 Years) and At-Risk Patients (6 to 49) Years) Completed 02/09/2023, 03/22/2012 COVID-19 Vaccine Completed 03/21/2024, 03/2023, 04/02/2022, Additional history exists HIV Screening Completed 03/21/2024, 02/09/2023 Hepatitis C Screening Completed 03/21/2024, 023 Influenza Vaccine Completed 03/21/2024, , 03/12/2022, Additional history exists HIB Vaccines Aged Out No longer eligi ble based on patient's age to complete this topic HPV Vaccines Aged Out No longer eligi ble based on patient's age to complete this topic IPV Vaccines Aged Out No longer eligi ble based on patient's age to complete this topic Meningococcal Vaccine Aged Out No meg ranjeet eligible based on patient's age to complete this topic RSV under 20 months Aged Out No longe r eligible based on patient's age to complete this topic Rotavirus Vaccines Aged Out No longer eligible based on patient's age to complete this topic Procedures Procedure Name Priority Date/Time Associated Diagnosis Comments HEMOGLOBIN A1C Routine 08/08/2024 10:28 AM EST Tobacco dependence syndrome ALBUMIN, RANDOM URINE W/CREATININE Routine 03/21/2024 12:20 PM EDT Type 2 diabetes mellitus with other specified complication, unspecified whether prison insulin use (CMS/HCC) HEPATITIS C AB W/REFL TO HCV RNA, QN, PCR Routine 03/21/2024 12:18 PM EDT Routine screening for STI (sexually transmitted infection) HIV 1/2 ANTIGEN/ANTIBODY, FOURTH GENERATION W/RFL Routine 03/21/2024 12:18 PM EDT Routine screening for STI (sexually transmitted infection) LIPID PANEL, STANDARD Routine 03/21/2024 12:18 PM EDT Dyslipidemia PROPHYLAXIS - ADULT Routine 12/23/2022 1 1:00 AM EDT DIAGNOSTIC - DIAGNOSTIC IMAGING - INTRAORAL - COMPREHENSIVE SERIES OF RADIOGRAPHIC IMAGES Routine 12/16/2022 10:30 AM EDT COMPREHENSIVE ORAL EVALUATION - NEW OR ESTABLISHED PATIENT Routine 12/16/2022 10:30 AM EDT from Last 3 Months or Most Recently Relevant to Health Maintenance Results * Hemoglobin A1c (08/08/2024 10:28 AM EST) Hemoglobin A1c 5.4 <6.0 % [facility] Comment:Hemoglobin A1C Refer ence Range Adults: 4.8 - 6.0 % Non diabetic: < 6.0 % Goal: < 7.0 %Additional Action Suggested: > 8.0 %Note: Hemoglobin A1c results are invalid for patients with abnormal amounts of HbF. Blood transfusions may impact the HbA1c concentration in the patient sample. Estimated Average Glucose 108 mg/dL [facility] Comment:eAG = Estimated ave rage glucose which is %A1C expressed asaverage glucose, using the formula of the K8G-[id number] Glucose study (ADAG), Diabetes Care, Vol.31,#8,Jan. 2007 08/08/2024 10:2 8 AM EST 08/08/2024 10:28 AM EST Generic External Data Provider LAB BLOOD ORDERAB LES Final Result Performing Organization Address [facility]/ZIP Co de Phone Number [facility] [address] [place] [phone] * Albumin, Random Urine W/Creatinine (03/21/2024 12:20 PM EDT) Creatinine, Urine 91.85 mg/dL [facility] Microalbumin Urine 6.0 mg/L [facility] Microalbum Creatinine Ratio Ur 6.5 <30 ug/mg cr [facility] Comment:Albumin/Creatinine R atio Reference Ranges: Normal: < 30 ug/mg creatinine Microalbuminuria: 30 - 300 ug/mg creatinineClinical Albuminuria: > 300 ug/mg creatinine Urine 03/21/2024 12:2 0 PM EDT 03/21/2024 1:21 PM EDT us Maryanne Freeman MD LAB URINE ORDERABLES Final Result Performing Organization Address [facility] Co de Phone Number [facility] [address] [place] [phone] * Hepatitis C Antibody with Reflex to HCV, RNA, Quantitative, Real-Time PCR (03/21/2024 12:18 PM EDT) Hepatitis C Antibody Nonreactive Nonreactive [facility] Comment:Antibodies to HCV no t detected; does not exclude early acuteHCV infection. Blood Venous blood specimen / Unknown 03/21/2024 12:18 PM EDT 03/21/2024 1:21 PM EDT Maryanne Freeman MD LAB BLOOD ORDERABLES Final Result Performing Organization Address [facility] Co de Phone Number [facility] [address] [place] [phone] * HIV-1/2 Antigen and Antibodies, Fourth Generation, with Reflexes (03/21/2024 12:18 PM EDT) HIV AB/AG Nonreactive Nonreactive [facility] Comment:HIV-1 p24 Ag and/or HIV-1/HIV-2 Ab not detected.A test result that is nonreactive does not exclude thepossibility of exposure to or infection with HIV-1 and/orHIV-2. Nonreactive results in this assay for individualswith prior exposure to HIV-1 and/or HIV-2 may be due toantigen and antibody levels that are below the limit ofdetection of this assay.The Buzztala HIV Ag/Ab Combo assay result andsupplemental assay results should be interpreted inconjunction with the patient's clinical presentation,history and other laboratory results. If the results areinconsistent with clinical evidence, additional testing issuggested to confirm the result. Blood Venous blood specimen / Unknown 03/21/2024 12:18 PM EDT 03/21/2024 1:21 PM EDT us Maryanne Freeman MD LAB BLOOD ORDERABLES Final Result [facility] [address] [place] [phone] * (ABNORMAL) Lipid Panel, Standard (03/21/2024 12:18 PM EDT) Triglycerides 71 <150 mg/dL [facility] Comment:Desirable Triglyceri de: less than 150 mg/dLBorderline High Triglyceride 150-199 mg/dLHigh Triglyceride: 200-499 mg/dLVery High Triglyceride: greater than or equal to 5OO mg/dL Cholesterol 170 <200 mg/dL [facility] Comment:Desirable Cholestero l: less than 200 mg/dLBorderline High Cholesterol: 200-239 mg/dLHigh Cholesterol: greater than 239 mg/dL LDL Cholesterol Calculated 115(H) <100 mg/dL [facility] Comment:Desirable LDL: less than 100 mg/dLNear Optimal/Above Optimal LDL: 110- 129 mg/dLBorderline High LDL: 130-159 mg/dLHigh LDL: 160-189 mg/dLVery High LDL: greater than or equal to 190 mg/dL HDL Cholesterol 41 >40 mg/dL [facility] Comment:Desirable HDL: great er than 40 mg/dL Note: This HDL assay may give artificially low results in patients with liver disease. Blood Venous blood specimen / Unknown 03/21/2024 12:18 PM EDT 03/21/2024 1:21 PM EDT Maryanne Freeman MD LAB BLOOD ORDERABLES Final Result [facility] [address] [place] [phone] from Last 3 Months or Most Recently Relevant to Health Maintenance Insurance [facility] - [facility] Advance Directives Documents on File Type Date Recorded Patient Linux Vmware Administrator Expl anation Advance Directives and Living Will 03/21/2024 Health Care Proxy 03/21/24 Care Teams Vice President Marketing & Development Relationship Specialty Start Date End Date [place], MD Maryanne [address] [place] [phone] PCP - General Family Medicine 06/29/18 Isaura Enriquez NP [address] [place] [address] Drive [address] [place] [address] Urology 05/18/24
== END 2024-08-08 10:08 | disposition home or self-care (01) ==
LOC: HO.LAB 10:07
PROVIDERS: PCP Family Medicine; Visit Provider Nurse Practitioner Family
DX: E11.9 Type 2 diabetes mellitus without complications (principal)
CPT/HCPCS: 36415; 83036

== ENCOUNTER 2024-08-09 14:41 | Outpatient (AMB) | payer OTHER, SELFPAY ==
--- NOTE | 2024-08-09 15:11 | MHC.OFFVIS ---
Intake Visit Reasons: 3m/labs Intake Note: Patient presents for follow up visit for erectile dysfunction and lab results HGB A1C: 5.4 Urology Medications: none Blood Thinner: none Heavy Equipment Operator/Paver Required: Yes Heavy Equipment Operator/Paver Services: Heavy Equipment Operator/Paver Present Heavy Equipment Operator/Paver Name: Thien [id number] Accompanied by: Self / Same As Patient Allergies No Known Allergies Allergy (Verified 08/09/24 16:57) Medication List - Last Reconciled 08/09/24 by JEFF Alcaraz acetaminophen (Tylenol Extra Strength) 500 mg PO Q6H PRN cyclobenzaprine 10 mg PO TID PRN lidocaine 5% (Lidoderm) 1 patch topical DAILY PRN MDD remove after 12 hours mupirocin 2% 1 appl topical TID naproxen 500 mg PO BID PRN 10 days paroxetine HCl mg PO DAILY tadalafil (Cialis) 10 mg PO .PRN PRN 30 days tadalafil (Cialis) 5 mg PO DAILY 90 days HPI Comments Details: Salty is a very pleasant 44-year-old Albanian-speaking male patient of Dr. Freeman. Has a past medical history of obesity, type 2 diabetes, sleep apnea, nicotine dependence, recreational marijuana use, hypertension, hyperlipidemia, depression, atrial fibrillation resolved with treatment of FLAKITO, and erectile dysfunction. He presents to the office today for follow-up of his erectile dysfunction. Of note, patient was seen approximately 3 months ago at which time he was started on daily dosing of tadalafil with p.r.n. dosing provided. In discussion with the patient today he reports feeling daily dosing as well as p.r.n. dosing has been affective in obtaining and maintaining his erections. He continues working on lifestyle modifications such as weight loss as well limiting nicotine dependence as well as recreational marijuana. He otherwise denies any bothersome urinary issues. In office urinalysis results reviewed with the patient today. He denies urinary urgency, urinary frequency, incontinence, nocturia, hematuria, dysuria, foul smelling urine, changes to urinary stream, flank pain, fever, and or chills. He is happy with his current voiding parameters. In review of patient's chart it appears testosterone was ordered and performed. These results were reviewed with the patient today as well as recent A1c. Testosterone: 03/22 511 A1c: 06/17 5.6, 02/18 5.9, 03/22 6.0, 08/23 5.4% [facility] Medical History No known health problems Review of Systems Const All systems reviewed & are unremarkable except as noted in HPI and below Physical Exam Const General: cooperative, healthy appearing, comfortable, no acute distress, well developed, alert and awake Nutritional Appearance: obese Orientation/consciousness: patient oriented x3 Limitations: no limitations HEENT Head: Yes normal to inspection, Yes normocephalic and Yes atraumatic Ears: hearing grossly normal bilaterally Eyes General: appearance normal, both eyes and all related structures Neck Neck: Yes normal visual inspection and Yes trachea midline Chest Chest palpation & inspection: normal inspection of the chest Resp Effort & Inspection: normal respiratory effort and able to speak in complete sentences Cardio Rate: regular rate GI Inspection: Yes normal to inspection General: Yes no CVA tenderness Back/Spine/Pelvis Back: no CVA tenderness Skin General skin exam: no rashes or lesions noted Neuro General: patient oriented x3 Extrem General: Yes normal to inspection Psych Appearance: grossly normal and well kempt Mental Status: mental status grossly normal Speech and movement: Normal speech and movement present and Clear speech present Affect: normal affect Attitude: cooperative Thought process: Normal thought process present Thought content: Normal thought content present Insight: Fair insight present (Psych) Judgement: Fair judgement present (Psych) Assessment & Plan Assessment & Plan (1) Erectile dysfunction associated with type 2 diabetes mellitus: Code(s): E11.69 - Type 2 diabetes mellitus with other specified complication; N52.1 - Erectile dysfunction due to diseases classified elsewhere Category: Medical (2) Nicotine dependence: Code(s): F17.200 - Nicotine dependence, unspecified, uncomplicated Category: Medical (3) Marijuana smoker: Code(s): F12.90 - Cannabis use, unspecified, uncomplicated Category: Medical Plan In office urinalysis results reviewed with the patient today; as noted above. Recent A1c results reviewed with the patient today We discussed at length importance of limiting/quitting marijuana use as well as nicotine dependence for overall health and well-being as well as erectile dysfunction. We discussed continuing lifestyle modifications to assist with erectile dysfunction as well as further treatment options and risks and benefits of these treatment options. He otherwise denies any bothersome urinary issues. He reports be happy with current voiding parameters. Continue Cialis; refills provided. Follow-up in 6 months; or sooner with any issues, concerns, and or questions. Medications: Refilled tadalafil (Cialis) [facility] DRRafa [id number] 5 mg PO DAILY 90 days 90 tabs 3RF tadalafil (Cialis) Take 1-2 tablets 1 hour prior to sexual activity; not to exceed more than 2-3 times [address] [facility] DRRafa [id number] 10 mg PO .PRN 30 days PRN 20 tabs 6RF sexual activity Patient Instructions: The patient had an opportunity to ask questions regarding the treatment plan. All questions were answered. Physical exam, labs, and imaging were discussed and reviewed in detail. As well as risks, benefits, and discussion of treatment choices. No major barriers to understanding were identified. The patient expressed understanding and agreement with the above treatment plan. The patient was made aware they should contact our office by phone for worsening of their current condition, the appearance of new symptoms, or with any questions or concerns. Compliance is encouraged with any medications and follow up testing that is ordered. It is a privilege to be allowed the opportunity to participate in? your urological care.? Again, if you have any questions or concerns If you have any questions or concerns please do not hesitate to contact me. The office is [phone]. This note is constructed using voice recognition software. While every effort has been made to ensure accuracy quality systems specialist errors may have been included. Yours sincerely, JEFF Alcaraz Coding Level of Care Code Est Pt Level 3 (34744) Diagnoses Erectile dysfunction associated with type 2 diabetes mellitus E11.69; N52.1 Nicotine dependence F17.200 Marijuana smoker F12.90
== END 2024-08-09 15:47 | disposition home or self-care (01) ==
LOC: HO.HUSH 14:41
PROVIDERS: PCP Family Medicine; Visit Provider Nurse Practitioner Family
DX: E11.69 Type 2 diabetes mellitus with other specified complication (principal); N52.1 Erectile dysfunction due to diseases classified elsewhere; F17.200 Nicotine dependence, unspecified, uncomplicated; F12.90 Cannabis use, unspecified, uncomplicated
CPT/HCPCS: 99213

== ENCOUNTER → 2024-08-09 14:41 | Outpatient (BNVA) | payer OTHER, SELFPAY | PROVIDERS: PCP Family Medicine; Visit Provider Nurse Practitioner Family | DX: E11.69 Type 2 diabetes mellitus with other specified complication (principal); N52.1 Erectile dysfunction due to diseases classified elsewhere; F12.90 Cannabis use, unspecified, uncomplicated; F17.200 Nicotine dependence, unspecified, uncomplicated | CPT/HCPCS: 99212 ==

== ENCOUNTER 2025-04-24 10:01 | Outpatient (REF) | payer OTHER, SELFPAY ==
--- OUTSIDE RECORDS SUMMARY | 2025-04-24 11:52 | XMS_ITS | Clinical Summary ---
Author Organization [employer] Address [address] [place] [address] Care Team Providers Care Tin Whiz Machine Operator Name Role Phone Aydlett, Maryanne SONI Primary Care Provider [phone] Isaura Enriquez NP Unavailable Allergies No known active allergies Medications PARoxetine (Paxil) 10 MG tablet 08/11/2022 Active traZODone (Desyrel) 50 MG tablet 08/11/2022 Active semaglutide (Ozempic) 2 MG/1.5ML solution pen-injectorIndi cations:Type 2 diabetes mellitus with other specified complication, unspecified whether skilled nursing insulin use (HCC),Obstructiv e sleep apnea syndrome Inject 1 mg under the skin 1 (one) time per week. 2 each 12 03/21/2024 Active fish oil (Fossil-3) 500 MG capsuleIndicatio ns:Dyslipidemia Take 1 capsule (500 mg) by mouth Once per day. 60 capsule 11 03/21/2024 Active Active Problems Problem Noted Date Diagnosed Date Erectile dysfunction 03/21/2024 Overview (08/21/2024): -Seen by urology 05/17/24. Trial of Cialis initiated. -note from Rosas Garrett reviewed from 08/19/24 Assessment & Plan (03/21/2024 11:16 AM EDT): Isolated episode of erectile dysfunction. -referred to Urology per pt request 03/21/24 Encounter for screening for malignant neoplasm o f colon 03/21/2024 Overview (03/21/2024): -referred to GI for screening 03/21/24 Assessment & Plan (03/21/2024 11:22 AM EDT): -referred to GI for screening 03/21/24 Neck pain 03/21/2024 Overview (12/12/2024): -ordered C-spine x-ray 03/21/24, -Additionally there appears [...] can be reached to get to ER -03/22/24 CT unremarkable. Assessment & Plan (03/21/2024 4:11 PM EDT): [...] ER Other specified health status 02/09/2023 Overview (09/19/2024): -next comprehensive annual evaluation due after 03/21/25 -referred to [facility] -dental home is [facility] -[facility] care proxy given and filed 03/21/24 Assessment & Plan (03/21/2024 11:09 AM EDT): -next comprehensive annual evaluation due after 03/12/2023. -referred to [facility] -dental home is [facility] -[facility] care proxy given and filed 03/21/24 Assessment & Plan (02/09/2023 10:44 AM EDT): -next physical exam due after 03/12/2023. -eye care facilitated by -dental home is [facility] History of atrial fibrillation 02/09/2023 Overview (02/09/2023): Distant Hx of atrial fibrillation right core pulmonale, resolved with treatment of FLAKITO. Assessment & Plan (02/09/2023 10:47 AM EDT): Distant Hx of atrial fibrillation right core pulmonale, resolved with treatment of FLAKITO. Numbness in both hands 02/09/2023 Overview (02/09/2023): [...] as pharmacomtherapy, [facility] smoking cessation group, and [facility] pharmacy smoking cessation clinic [facility] annual lung cancer screening with low [...] as pharmacomtherapy, [facility] smoking cessation group, and [facility] pharmacy smoking cessation clinic Discussed [facility]F recommends annual lung cancer screening with low dose CT in people who meet the following criteria: -ages 50 to 80 years. -have a 20 pack-year smoking history. -currently smoke cigarettes or quit within the past 15 years. -LDCT: Dyslipidemia 11/17/2012 Overview (12/12/2024): Lab Results Component Value Date CHOL 170 03/21/2024 CHOL 234 02/09/2023 TRIG 71 03/21/2024 TRIG 119 02/09/2023 HDL 41 03/21/2024 HDL 49 02/09/2023 LDLCHOLCAL 115 (H) 03/21/2024 LDLCHOLCAL 162 02/09/2023 -continue lifestyle modification Assessment & Plan (02/09/2023 9:56 AM EDT): No results found for: CHOLESTEROL, LDLCHOL, TRIG, HDLCHOL, CHOLHDLRAT -continue lifestyle modifications Erythrocytosis 01/06/2012 Overview (09/19/2024): Lab Results Component Value Date HGB 15.6 03/21/2024 Morbid obesity (CMS/HCC) 01/06/2012 Overview (08/21/2024): -Baseline Weight 239 02/09/2023 -Ozempic started 02/09/2023 -Weight 231 (-8lbs) 03/03/2023 ozempic increased 1.5 -Continue lifestyle modifications Assessment & Plan (03/21/2024 11:18 AM EDT): [...] wit h other specified complication, unspecified whether termination clerk insulin use 01/06/2012 Overview (08/21/2024): Diabetes is controlled. Lab Results Component Value Date HGBA1C 5.4 08/08/2024 HGBA1C 6.0 03/21/2024 HGBA1C 5.9 02/09/2023 Lab Results Component Value Date MICROALBUR 6.0 03/21/2024 CREATININE 0.75 03/21/2024 -Ozempic started 02/09/2023. Increased to 1.5 mg weekly 03/23/2023. -Continue Ozempic 1.5 mg once a week. -Alexander/Arb: none -Statin therapy: none -Diabetic eye exam: referred to [facility] 03/21/24 -Diabetic foot exam: [...] therapy: none -Diabetic eye exam: referred to [facility] 03/21/24 -Diabetic foot exam: [...] -Diabetic foot exam: due -Continue lifestyle modifications Resolved Problems Problem Noted Date Diagnosed Date Resolved Date Dietary counseling 09/19/2024 Exercise counseling 09/19/2024 12/13/19 Acute strain of neck muscle 03/28/2024 08/21/2024 Erysipelas 03/28/2024 08/21/2024 Pain 03/28/2024 08/21/2024 Class 3 obesity (CMS/HCC) 02/09/2023 Overview (03/23/2023): -Weight 239 02/09/2023 -Ozempic started 02/09/2023. -Weight 231 03/03/2023 ozempic increased. -Continue lifestyle modifications. Assessment & Plan (03/23/2023 11:05 AM EDT): -Weight 239 02/09/2023 -Ozempic started 02/09/2023. -Weight 231 03/03/2023 ozempic increased. -Continue lifestyle modifications. Assessment & Plan (02/09/2023 10:48 AM EDT): Pt lost significant amount of weight. Weight in 2011 was 212lbs. Encounters Date Type Department Care Team Description 03/03/2025 Telephone [facility] [address] [place] [address] Mee Salomon MA 02/23/2025 Telephone [facility] [address] [place] [address] Maryanne Freeman MD from Last 3 Months Immunizations Immunization Administration Dates Next Due Hep A, Adult [...] your housing situation today? I have suzi chaney 03/21/[address] you li [...] 80 03/21/2024 11:00 AM EDT Temperature 36.2 C (97.1 F) 03/21/2024 11:00 AM EDT Respiratory Rate 20 03/21/2024 11:00 AM EDT Oxygen Saturation 98% 03/21/2024 11:00 AM EDT Inhaled Oxygen Concentration - - Weight 105 kg (232 lb) 03/21/2024 11:00 AM EDT Height 167.6 cm (5' 6 ) 03/21/2024 11:00 AM EDT Body Mass Index 37.45 03/21/2024 11:00 AM EDT Plan of Treatment Health Maintenance Due Date Last Done Comments CT Colonography 1979 Colonoscopy 1979 Colorectal Cancer Screening 1979 FIT DNA/Cologuard 1979 FIT 1979 FOBT 1979 Sigmoidoscopy 1979 Disability Screening 1979 Eye Exam 1989 Alcohol/Substance Use Screening 1991 Family Planning (PISQ) 1994 Dental Oral Exam 06/18/2023 12/16/2022 Dental Prophylaxis 06/25/2023 12/23/2022 Dental X-Ray: Bitewings 12/18/2023 12/16/2022 Diabetes: Hemoglobin A1C 02/05/2025 025, 03/21/2024, 02/09/2023, Additional history exists Influenza Vaccine (#1) 2025 , 03/23/2023, 03/12/2022, Additional history exists Depression Screening 03/21/2025 03/21/2024, 03/21/20 Diabetes: Foot Exam 03/21/2025 03/21/2024, 03/21/2024, 03/21/2024, Additional history exists Diabetes: Urine Protein Screening 03/21/2025 03/21/2024, 03/23/2023, 02/09/2023 Lipid Panel 03/21/2025 03/21/2024, 02/09/2023 SDOH Screening 03/21/2025 03/21/2024 Tobacco Screening 08/21/2025 08/21/2024 Dental X-Ray: Full Mouth 12/17/2025 12/16/2022, 11/27 Zoster Vaccines (1 of 2) 2029 DTaP/Tdap/Td Vaccines (3 - Td or Tdap) 03/12/2032 03/12/2022, 03/22/2012 RSV Patients and Patients Aged 60 years or older (1 - 1-dose 75+ series) 2054 Hepatitis B Vaccines Completed 03/12/2022, 03/24/2019, 11/03/2018 Hepatitis A Vaccines Aged Out 02/09/2023, 11/04/19 19 No longer eligible based on patient's age to complete this topic Pneumococcal Vaccine: Pediatrics (0 to 5 Years) and At-Risk Patients (6 to 49) Years Completed 02/09/2023, 03/22/2012 COVID-19 Vaccine Completed 03/21/2024, 03/2023, 04/02/2022, Additional history exists HIV Screening Completed 03/21/2024, 02/09/2023 Hepatitis C Screening Completed 03/21/2024, 023 HIB Vaccines Aged Out No longer eligi ble based on patient's age to complete this topic HPV Vaccines Aged Out No longer eligi ble based on patient's age to complete this topic IPV Vaccines Aged Out No longer eligi ble based on patient's age to complete this topic Meningococcal B Vaccine Aged Out No l onger eligible based on patient's age to complete [...] mellitus with other specified complication, unspecified whether skilled nursing insulin use ([facility]) HEPATITIS C AB W/REFL TO HCV RNA, QN, PCR Routine 03/21/2024 12:18 PM EDT Routine screening for STI (sexually transmitted infection) HIV 1/2 ANTIGEN/ANTIBODY, FOURTH GENERATION W/RFL Routine 03/21/2024 12:18 PM EDT Routine screening for STI (sexually transmitted infection) LIPID PANEL, STANDARD Routine 03/21/2024 12:18 PM EDT Dyslipidemia PROPHYLAXIS - ADULT Routine 12/23/2022 1 1:00 AM EDT INTRAORAL - COMPLETE SERIES OF RADIOGRAPHIC IMAGES Routine 12/16/2022 10:30 AM EDT COMPREHENSIVE ORAL EVALUATION - NEW OR ESTABLISHED PATIENT Routine 12/16/2022 10:30 AM EDT from Last 3 Months or Most Recently Relevant to Health Maintenance Results * Hemoglobin A1c (08/08/2024 10:28 AM EST) Hemoglobin A1c 5.4 <6.0 % [facility] Comment:Hemoglobin A1C Refer ence Range Adults: 4.8 - 6.0 % Non diabetic: < 6.0 % Goal: < 7.0 %Additional Action Suggested: > 8.0 %Note: Hemoglobin A1c results are invalid for patients with abnormal amounts of HbF. Blood transfusions may impact the HbA1c concentration in the patient sample. Estimated Average Glucose 108 mg/dL [facility] Comment:eAG = Estimated ave rage glucose which is %A1C expressed asaverage glucose, using the formula of the M0P-RadlgoxNvntaax Glucose study (ADAG), Diabetes Care, Vol.31,#8,2007 08/08/2024 10:2 8 AM EST 08/08/2024 10:28 AM EST us Generic External Data Provider LAB BLOOD ORDERAB LES Final Result Performing Organization Address [facility] Co de Phone Number [facility] [address] [place] [phone] * Albumin, Random Urine W/Creatinine (03/21/2024 12:20 PM EDT) Creatinine, Urine 91.85 mg/dL [facility] Microalbumin Urine 6.0 mg/L [facility] Microalbum Creatinine Ratio Ur 6.5 <30 ug/mg cr [facility] Comment:Albumin/Creatinine R atio Reference Ranges: Normal: < 30 ug/mg creatinine Microalbuminuria: 30 - 300 ug/mg creatinineClinical Albuminuria: > 300 ug/mg creatinine Urine 03/21/2024 12:2 0 PM EDT 03/21/2024 1:21 PM EDT us Maryanne Freeman MD LAB URINE ORDERABLES Final Result Performing Organization Address [facility] Co de Phone Number [facility] [address] [place] [phone] * Hepatitis C Antibody with Reflex to HCV, RNA, Quantitative, Real-Time PCR (03/21/2024 12:18 PM EDT) Hepatitis C Antibody Nonreactive Nonreactive [facility] Comment:Antibodies to HCV no t detected; does not exclude early acuteHCV infection. Blood Venous blood specimen / Unknown 03/21/2024 12:18 PM EDT 03/21/2024 1:21 PM EDT Maryanne Freeman MD LAB BLOOD ORDERABLES Final Result Performing Organization Address [facility]/ZIP Co de Phone Number [facility] [address] [place] [address] [phone] * HIV-1/2 Antigen and Antibodies, Fourth Generation, with Reflexes (03/21/2024 12:18 PM EDT) HIV AB/AG Nonreactive Nonreactive [facility] Comment:HIV-1 p24 Ag and/or HIV-1/HIV-2 Ab not detected.A test result that is nonreactive does not exclude thepossibility of exposure to or infection with HIV-1 and/orHIV-2. Nonreactive results in this assay for individualswith prior exposure to HIV-1 and/or HIV-2 may be due toantigen and antibody levels that are below the limit ofdetection of this assay.The [employer] HIV Ag/Ab Combo assay result andsupplemental assay results should be interpreted inconjunction with the patient's clinical presentation,history and other laboratory results. If the results areinconsistent with clinical evidence, additional testing issuggested to confirm the result. Blood Venous blood specimen / Unknown 03/21/2024 12:18 PM EDT 03/21/2024 1:21 PM EDT Maryanne Freeman MD LAB BLOOD ORDERABLES Final Result Performing Organization Address [facility]/ZIP Co de Phone Number [facility] [address] [place] [phone] [phone] * (ABNORMAL) Lipid Panel, Standard (03/21/2024 12:18 PM EDT) Triglycerides 71 <150 mg/dL [facility] Comment:Desirable Triglyceri de: less than 150 mg/dLBorderline High Triglyceride 150-199 mg/dLHigh Triglyceride: 200-499 mg/dLVery High Triglyceride: greater than or equal to 5OO mg/dL Cholesterol 170 <200 mg/dL [facility] Comment:Desirable Cholestero l: less than 200 mg/dLBorderline High Cholesterol: 200-239 mg/dLHigh Cholesterol: greater than 239 mg/dL LDL Cholesterol Calculated 115(H) <100 mg/dL [facility] Comment:Desirable LDL: less than 100 mg/dLNear Optimal/Above Optimal LDL: 110- 129 mg/dLBorderline High LDL: 130-159 mg/dLHigh LDL: 160-189 mg/dLVery High LDL: greater than or equal to 190 mg/dL HDL Cholesterol 41 >40 mg/dL [facility] Comment:Desirable HDL: great er than 40 mg/dL Note: This HDL assay may give artificially low results in patients with liver disease. Blood Venous blood specimen / Unknown 03/21/2024 12:18 PM EDT 03/21/2024 1:21 PM EDT us Maryanne Freeman MD LAB BLOOD ORDERABLES Final Result [facility] [address] [place] [phone] from Last 3 Months or Most Recently Relevant to Health Maintenance Insurance [employer] < 65 [address] [place] [id number] DENTAL - [facility] [address] Advance Directives Documents on File Type Date Recorded Patient Requirements Engineer Expl anation Advance Directives and Living Will 03/21/2024 Health Care Proxy 03/21/24 Care Teams Tin Whiz Machine Operator Relationship Specialty Start Date End Date Aydlett, MD Maryanne [address] [place] [phone] PCP - General Family Medicine 06/29/18 Isaura Enriquez NP [address] [place] [address] Urology 05/18/24
[2025-04-24 12:05] LABS: Alanine Aminotransferase 55 U/L (0-40); Albumin Level 4.6 g/dL (3.5-5.0); Alkaline Phosphatase 86 U/L (39-117); Anion Gap 11 (12-20); Aspartate Amino Transferase 44 U/L (5-37); Blood Urea Nitrogen 18 mg/dL (9-16); Calcium 8.9 mg/dL (8.4-10.2); Carbon Dioxide 27 mmol/L (22-29); Chloride 109 mmol/L (96-108); Cholesterol 222 mg/dL (<200); Estimated Glomerular Filt Rate > 60; HDL Cholesterol 47 mg/dL (>40); Potassium 3.6 mmol/L (3.3-5.1); Sodium 143 mmol/L (135-145); Total Protein 7.4 g/dL (6.5-8.0); Triglycerides 67 mg/dL (<150)
[2025-04-24 13:25] LABS: Microalbum/Creatinine Ratio Ur 9.7 ug/mg cr (<30)
== END 2025-04-24 10:02 | disposition home or self-care (01) ==
LOC: HO.LAB 10:01
PROVIDERS: PCP Family Medicine; Visit Provider Nurse Practitioner Family
DX: I10 Essential (primary) hypertension (principal); E78.5 Hyperlipidemia, unspecified; N52.1 Erectile dysfunction due to diseases classified elsewhere; E11.69 Type 2 diabetes mellitus with other specified complication; Z86.79 Personal history of other diseases of the circulatory system
CPT/HCPCS: 36415; 80048; 80061; 80076; 82043; 82570; 83036; 84443